=== PATIENT | female | born 1995 | race Caucasian/White ===

== ENCOUNTER 2022-06-19 18:34 | Emergency (ER) | payer OTHER ==
[2022-06-19] MEDS ORDERED: ACETAMINOPHEN 500 MG TAB ONE (19:51)
--- NOTE | 2022-06-19 20:05 | RAD REPORT ---
EXAM DESCRIPTION: CT - CTHCSPWOC - 06/19/2022 7:26 pm CLINICAL HISTORY: asdf COMPARISON: <Comparisons> TECHNIQUE: Axial 5 mm thick images of the head were obtained. Axial 2 mm thick images of the cervic al spine were obtained with sagittal and coronal reconstruction images generated and reviewed. All CT scans are performed using dose optimization technique as appropriate and may include automated exposure control or mA/KV adjustment according to patient size. FINDINGS: No intracranial hemorrhage, mass, edema or acute intracranial finding. Ventricles are norm al. No extra-axial fluid collections. Mastoid air cells and paranasal sinuses are clear. No globe or orbit abnormality seen. Cervical body height and alignment are normal. No disk space narrowing. No fracture or acute bony abn ormality. Central canal detail is inherently limited. No paraspinal mass or hematoma. IMPRESSION: Negative CT head examination for acute or significant finding. Negative CT cervical spine examination for acute or significant finding.
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
--- NOTE | 2022-06-19 20:46 | RAD REPORT ---
EXAM DESCRIPTION: RAD - Hand Right 3 View - 06/19/2022 7:24 pm CLINICAL HISTORY: PAIN COMPARISON: No comparisons FINDINGS: No fracture is identified. There is no dislocation or periosteal reaction noted. No forei gn body or significant soft tissue abnormality. IMPRESSION: Negative right hand examination.
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
[2022-06-19 22:45] VITALS: TEMP 97.7
[2022-06-19 22:56] VITALS: BP 129/79; O2SAT 100
--- NOTE | 2022-06-20 08:14 | EKG ---
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
== END 2022-06-19 21:11 | disposition home or self-care (01) ==
LOC: ER 18:34
DX: M25.512 Pain in left shoulder (principal); M79.641 Pain in right hand; M54.2 Cervicalgia; V49.49XA Driver injured in collision with other motor vehicles in traffic accident, initial encounter
CPT/HCPCS: 70450; 71045; 72125; 93005; 99284